=== PATIENT | female | born 1940 | race Caucasian/White ===

== ENCOUNTER 2019-09-21 09:19 | Outpatient (CLI) | payer MEDICARE, OTHER, SELFPAY ==
--- NOTE | 2019-09-21 | XR_ITS ---
WS: [id number] CHEST 2 VIEWS HISTORY: RIB PAIN ON LEFT SIDE COMPARISON: 04/09/2017 Lungs: Marked pulmonary hyperexpansion with chronic emphysema. Biapical pleural thickening and scarri ng. Flattening of the diaphragms. No pneumonia. Cardiac size: Normal. Mediastinum/Aorta: Mild atherosclerosis aorta. Bones: Severe osteopenia with increase in thoracic kyphosis. XR/XR chest 2V* [id number] IMPRESSION: Chronic emphysema. No pneumonia.
--- NOTE | 2019-09-21 | XR_ITS ---
WS: [id number] LUMBAR SPINE: 3 VIEWS TECHNIQUE: AP, lateral and L5-S1 spot. HISTORY: ACUTE LUMBAR BACK PAIN COMPARISON: 04/08/2015 Severe degenerative rotoscoliosis of the lumbar spine. S-shaped curvature the lumbar spine with asymm etric disc space narrowing and endplate osteophytes. 5 mm retrolisthesis of L2 and L3 and anterolisth esis of L4. Similar findings as compared to 04/08/2015. No acute fracture. Extensive atherosclerosis within the abdominal aorta. Calcification overlying the RIGHT kidney. SI joints are symmetric bilaterally. No soft tissue abnormalities. XR/XR lumbar spine 2-3V* [id number] IMPRESSION: Severe rotoscoliosis lumbar spine with asymmetric disc space narrowing. No acut e fracture identified.
== END 2019-09-21 09:20 | disposition home or self-care (01) ==
PROVIDERS: Family Provider Internal Medicine; PCP Family Medicine; Visit Provider Internal Medicine
DX: J43.9 Emphysema, unspecified (principal); R07.81 Pleurodynia; M54.5 Low back pain

== ENCOUNTER 2020-04-11 13:59 | Outpatient (CLI) | payer MEDICARE, OTHER, SELFPAY ==
--- NOTE | 2020-04-11 14:15 | USCV_ITS ---
Sander Bello Age: 79 Gender: F : 1940 Exam Date: 04/11/2020 14:35 Ordering Phys: Nicolas Ramirez MD Technologist: Shagufta Frye Exam Location: [facility] [place] Indication: EXERTIONAL SORTNESS OF BREATH BP: 130 / 70 HR: 64 Rhythm: Sinus Technical Quality: Adequate MEASUREMENTS (Male / Female) Normal Values 2D ECHO LV Diastolic Diameter PLAX 4.0 cm 4.2 - 5.9 / 3.9 - 5.3 cm LV Systolic Diameter PLAX 2.3 cm LV Chamber Size 4.0 cm IVS Diastolic Thickness 1.3 cm 0.6 - 1.0 / 0.6 - 0.9 cm IVS Systolic Thickness 1.3 cm LVPW Diastolic Thickness 1.1 cm 0.6 - 1.0 / 0.6 - 0.9 cm LVPW Systolic Thickness 1.7 cm RV Chamber Size 2.9 cm LVOT Diameter 2.0 cm LV Ejection Fraction 2D Teich 73.6 % LV Ejection Fraction MOD 2C 68.2 % LV Ejection Fraction 2C AL 69.3 % LA Diameter 3.1 cm LA Width 3.2 cm LA Height 3.7 cm RA Width 3.2 cm RA Height 3.2 cm Aorta at Sinotubular Diameter 2.3 cm M-MODE LV Diastolic Diameter MM 4.4 cm 4.2 - 5.9 / 3.9 - 5.3 cm LV Systolic Diameter MM 2.6 cm LV Ejection Fraction MM Teich 71.5 % IVS Diastolic Thickness MM 1.1 cm 0.6 - 1.0 / 0.6 - 0.9 cm IVS Systolic Thickness MM 1.4 cm LVPW Diastolic Thickness MM 1.1 cm 0.6 - 1.0 / 0.6 - 0.9 cm LVPW Systolic Thickness MM 1.6 cm RV Diastolic Diameter MM 1.4 cm Aortic Annulus Diameter 2.8 cm LA Ao Ratio MM 1.1 MV E Point Septal Separation 0.5 cm DOPPLER AV Peak Velocity 165.0 cm/s LVOT Peak Velocity 101.0 cm/s AV Area Cont Eq vti 2.2 cm squared AV Area Cont Eq pk 2.0 cm squared MV Area PHT 2.3 cm squared Mitral E to A Ratio 1.0 MV E' Velocity 8.0 cm/s Mitral E to MV E' Ratio 13.8 Mitral E to LV E' Lateral Ratio 12.7 Mitral E to LV E' Septal Ratio 15.4 TR Peak Velocity 179.8 cm/s TR Peak Gradient 12.9 mmHg TR Mean Velocity 102.7 cm/s TR Mean Gradient 4.9 mmHg TR Velocity Time Integral 36.4 cm TV Peak E Velocity 51.0 cm/s Right Atrial Pressure 3.0 mmHg Pulmonary Artery Systolic Pressu 15.9 mmHg PV Peak Velocity 70.0 cm/s RV Acceleration Time 0.1 s RV Ejection Time 0.3 s RV AcT/ET 0.5 FINDINGS Left Ventricle Normal left ventricular size is slightly diminished ejection fraction of 50 to 55%. Mild diffuse hypokinesia of the left ventricle Right Ventricle Normal right ventricular size and systolic function. Right Atrium Normal right atrial size. Left Atrium Normal left atrial size. Mitral Valve Thickened mitral valve. Mild mitral annular calcification. Trace mitral valve regurgitation. Aortic Valve Thickened aortic valve. Tricuspid Valve No gross abnormalities noted Pulmonic Valve Mild pulmonary valve regurgitation. Pericardium No pericardial effusion. Aorta Normal aortic annulus size. CONCLUSIONS Normal left ventricular size is slightly diminished ejection fraction of 50 to 55%. Mild diffuse hypokinesia of the left ventricle Thickened mitral valve. Mild mitral annular calcification. Trace mitral valve regurgitation. Thickened aortic valve. Mild pulmonary valve regurgitation. There is no pericardial effusion. There are no intracardiac masses. No previous study is available for comparison. Dr Jamie Ledesma MD [facility] (Electronically Signed) Final Date: 11 April 2020 19:38 S
== END 2020-04-11 14:00 | disposition home or self-care (01) ==
LOC: RAD 14:05
PROVIDERS: PCP Internal Medicine; Visit Provider Internal Medicine Pulmonary Disease
DX: R06.02 Shortness of breath (principal); I08.0 Rheumatic disorders of both mitral and aortic valves
CPT/HCPCS: 93306

== ENCOUNTER → 2020-04-15 11:47 | Outpatient (BNVA) | payer MEDICARE, OTHER, SELFPAY | PROVIDERS: PCP Internal Medicine; Visit Provider Internal Medicine | DX: Z12.2 Encounter for screening for malignant neoplasm of respiratory organs (principal) | CPT/HCPCS: 87635 ==

== ENCOUNTER → 2020-05-19 13:16 | Outpatient (BNVA) | payer MEDICARE, OTHER, SELFPAY | PROVIDERS: PCP Internal Medicine; Visit Provider Nurse Practitioner Family | DX: Z11.59 Encounter for screening for other viral diseases (principal) | CPT/HCPCS: 87635 ==

== ENCOUNTER 2020-05-23 13:10 | Outpatient (CLI) | payer MEDICARE, OTHER, SELFPAY ==
--- NOTE | 2020-05-23 13:30 | CT_ITS ---
WS: [id number] CT CHEST TECHNIQUE: Noncontrast CT of the chest with coronal and sagittal reformatted images. CLINICAL INFORMATION: Lung cancer screening COMPARISON: None. DLP: 356.[address] scans at [facility] use at least one of these dose optimization techniques: automat ed exposure control; mA and/or kV adjustment per patient size (includes targeted exams where dose is matched to clinical indication); or iterative reconstruction. FINDINGS: Moderate chronic emphysematous changes. Fibrosis in the lung apices. 4 mm noncalcified pulmonary nodu le right middle lobe. Additional tiny 2.3 mm noncalcified nodule right upper lobe. Fibrotic appearing noncalcified nodule left lower lobe measuring 4 mm. No mediastinal or hilar lymphadenopathy. Vascula r calcification including coronary. Aortic arch calcification. Slightly aneurysmal aortic arch measur ing 3.2 x 3.6 cm AP by transverse. Adrenal glands are normal. CT/CT chest wo con [id number] IMPRESSION: 1. A few subcentimeter noncalcified pulmonary nodules largest in the right mid dle lobe measuring 4 mm. Recommend 12 month follow-up. 2. Moderate chronic emphysematous changes. 3. No mediastinal or hilar lymphadenopathy. 4. Slightly aneurysmal aortic arch measuring 3.2 x 3.6 cm AP by transverse.
[2020-05-23 13:45] VITALS: O2SAT 97; O2SAT 99
--- NOTE | 2020-05-23 13:46 | PFTS_ITS ---
Date of Study:05/23/20 Date of Dictation: MECHANICS: Forced vital capacity (FVC) is normal. Forced expiratory volume in one second (FEV1) is reduced. FEV1/FVC is reduced. FLOW VOLUME LOOP: Reduced flow at all lung volumes with significant scooping. LUNG VOLUMES: Total lung capacity (TLC) is normal. Residual volume (RV) is increased. DIFFUSING CAPACITY FOR CARBON MONOXIDE: Moderately reduced. INTERPRETATION: The pulmonary function tests are consistent with moderate obstruction. There is no significant postbronchodilator response. Lung volumes are consistent with air trapping. Gas exchange (DLCO) is moderately reduced. MTDD
== END 2020-05-23 13:11 | disposition home or self-care (01) ==
LOC: RAD 13:11
PROVIDERS: PCP Internal Medicine; Visit Provider Internal Medicine Pulmonary Disease
DX: Z12.2 Encounter for screening for malignant neoplasm of respiratory organs (principal); F17.200 Nicotine dependence, unspecified, uncomplicated; J44.9 Chronic obstructive pulmonary disease, unspecified; R91.8 Other nonspecific abnormal finding of lung field
CPT/HCPCS: 71250; 94060; 94726; 94729; 94760; J7611

== ENCOUNTER 2020-10-27 09:51 | Outpatient (RCR) | payer MEDICARE, OTHER, SELFPAY | END 2020-10-30 23:59 | disposition home or self-care (01) | LOC: PULRHB 09:51 | PROVIDERS: PCP Internal Medicine; Visit Provider Internal Medicine Pulmonary Disease | DX: J44.9 Chronic obstructive pulmonary disease, unspecified (principal) | CPT/HCPCS: 94618 ==

== ENCOUNTER 2020-10-31 06:00 | Outpatient (RCR) | payer MEDICARE, OTHER, SELFPAY | END 2020-11-30 23:59 | disposition home or self-care (01) | LOC: PULRHB 06:00 | PROVIDERS: PCP Internal Medicine; Visit Provider Internal Medicine Pulmonary Disease | DX: J44.9 Chronic obstructive pulmonary disease, unspecified (principal) | CPT/HCPCS: G0424 ==

== ENCOUNTER 2020-12-01 06:00 | Outpatient (RCR) | payer MEDICARE, OTHER, SELFPAY | END 2020-12-30 23:59 | disposition home or self-care (01) | LOC: PULRHB 06:00 | PROVIDERS: PCP Internal Medicine; Visit Provider Internal Medicine Pulmonary Disease | DX: J44.9 Chronic obstructive pulmonary disease, unspecified (principal) | CPT/HCPCS: G0424 ==

== ENCOUNTER 2020-12-31 06:00 | Outpatient (RCR) | payer MEDICARE, OTHER, SELFPAY | END 2021-01-30 23:59 | disposition home or self-care (01) | LOC: PULRHB 06:00 | PROVIDERS: PCP Internal Medicine; Visit Provider Internal Medicine Pulmonary Disease | DX: J44.9 Chronic obstructive pulmonary disease, unspecified (principal) | CPT/HCPCS: G0424 ==

== ENCOUNTER 2021-06-07 08:33 | Outpatient (CLI) | payer MEDICARE, OTHER, SELFPAY ==
--- NOTE | 2021-06-07 08:00 | CT_ITS ---
WS: [id number] CT CHEST WITHOUT INTRAVENOUS CONTRAST HISTORY: pulmonary nodule TECHNIQUE: Contiguous 5 mm axial imaging performed on the thorax. Coronal and sagittal reformats are submitted. All CT scans at [facility] use at least one of these dose optimization techniques: automated exposure control; mA and/or kV adjustment per patient size (includes targeted exams where dose is matched to clinical indication); or iterative reconstruction. CONTRAST: None DLP: 365.13 mGy.cm COMPARISON: 05/23/2020 Lungs and central airway: Marked pulmonary hyperexpansion from emphysema. Biapical pleural thickening is stable. 0.2 nodule in the periphery of the RIGHT upper lobe as seen on the prior study is stable. There is a new slightly lobulated soft tissue mass with mild adjacent nodularity in the RIGHT middle lobe. This nodule measures 2.1 x 1.4 cm and is closely associated with the bronchus. Additional 0.6 cm nodule is noncalcified in the anterior RIGHT middle lobe, slightly increased in size. Pleura: Normal. No pleural effusion. Heart and pericardium: Normal size heart. No pericardial effusion. Moderate coronary artery atheroscl erosis. Mediastinum and luiz: No adenopathy is identified. Smaller nodes at the RIGHT hilum would be obscured without IV contrast. Vessels: Ectatic heavily calcified thoracic aorta. There is a very slight dilatation of the aorta thr ough the arch with a maximum diameter of 3.7 cm which is similar to the prior study. Overall the aort a is ectatic. Chest wall and lower neck: No soft tissue masses. Upper abdomen: Cholelithiasis without acute cholecystitis. Mild thickening of the RIGHT adrenal gland with low Hounsfield units is probably an adenoma. No increase in size. Mild heterogeneity within the liver. Osseous structures: Mild rotoscoliosis of the thoracolumbar spine. CT/CT chest wo con [id number] IMPRESSION: 1. New RIGHT middle lobe nodule measures 2.1 x 1.4 cm. Suspicious for carcinom a. This is closely associated with a proximal bronchus therefore may be accessi ble via bronchoscopy. Recommend PET/CT imaging also. 2. Very slight increase in size of the 0.6 cm nodule in the anterior RIGHT mid dle lobe. No change in size of the 0.2 cm nodule RIGHT upper lobe. 3. Marked emphysema. 4. 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
--- NOTE | 2021-06-07 08:45 | USCV_ITS ---
Sander Bello Age: 80 Gender: F : 1940 Exam Date: 06/07/2021 08:52 Ordering Phys: Nicolas Ramirez MD Technologist: Joan Gómez Exam Location: [facility] [place] Indication: DYSPNEA BP: 130 / 84 HR: 89 Rhythm: Sinus Technical Quality: Adequate MEASUREMENTS (Male / Female) Normal Values 2D ECHO LV Diastolic Diameter PLAX 3.6 cm 4.2 - 5.9 / 3.9 - 5.3 cm LV Systolic Diameter PLAX 1.5 cm IVS Diastolic Thickness 1.1 cm 0.6 - 1.0 / 0.6 - 0.9 cm IVS Systolic Thickness 1.6 cm LVPW Diastolic Thickness 1.1 cm 0.6 - 1.0 / 0.6 - 0.9 cm LVPW Systolic Thickness 2.1 cm LVOT Diameter 2.0 cm LV Ejection Fraction 2D Teich 89.9 % LV Ejection Fraction MOD 2C 56.5 % LV Ejection Fraction 2C AL 56.8 % LA Diameter 3.0 cm LA Width 3.3 cm LA Height 4.7 cm RA Width 3.2 cm RA Height 4.7 cm Aorta at Sinotubular Diameter 2.6 cm DOPPLER AV Peak Velocity 162.0 cm/s LVOT Peak Velocity 117.0 cm/s AV Area Cont Eq vti 2.5 cm squared AV Area Cont Eq pk 2.4 cm squared MV Peak Velocity 143.0 cm/s MV Area PHT 2.9 cm squared Mitral E to A Ratio 1.2 MV E' Velocity 63.0 cm/s Mitral E to MV E' Ratio 13.1 Mitral E to LV E' Lateral Ratio 16.5 Mitral E to LV E' Septal Ratio 10.8 TR Peak Velocity 191.7 cm/s TR Peak Gradient 14.7 mmHg Right Atrial Pressure 3.0 mmHg Pulmonary Artery Systolic Pressu 17.7 mmHg PV Peak Velocity 99.0 cm/s RV Acceleration Time 0.1 s RV Ejection Time 0.4 s RV AcT/ET 0.2 FINDINGS Left Ventricle Normal left ventricular size and wall thickness. Low normal left ventricular systolic function. Left ventricular ejection fraction is estimated at 50-55 %. No regional wall motion abnormality. Normal diastolic function. Right Ventricle Normal right ventricular size and systolic function. Right ventricular systolic pressure 17.7 mmHg. Right Atrium Normal right atrial size. Right atrial pressure estimated at 3 mm Hg. Left Atrium Mildly increased left atrial size. Mitral Valve Mild mitral annular calcification. Mildly thickened mitral valve. No mitral valve stenosis. Trace to mild mitral valve regurgitation. Aortic Valve Thickened trileaflet aortic valve. No aortic valve stenosis. No aortic valve regurgitation. Tricuspid Valve Structurally normal tricuspid valve. No tricuspid valve stenosis. Trace to mild tricuspid valve regurgitation. Pulmonic Valve Structurally normal pulmonic valve. No pulmonary valve stenosis. Mild pulmonary valve regurgitation. Pericardium No pericardial effusion. Aorta Normal sized aortic root and proximal aortic root. Normal sized inferior vena cava with normal respiratory variation. CONCLUSIONS 1. Normal left ventricular size and wall thickness. Low normal left ventricular systolic function. Left ventricular ejection fraction is estimated at 50-55 %. No regional wall motion abnormality. Normal diastolic function. 2. Normal right ventricular size and systolic function. 3. Mildly increased left atrial size. 4. Normal pulmonary artery pressure. 5. Mild pulmonary valve regurgitation. 6. No significant change when compared to previous study dated 04/11/2020. Sheela Melgar MD (Electronically Signed) Final Date: 07 June 2021 19:38 S
== END 2021-06-07 08:34 | disposition home or self-care (01) ==
LOC: US 08:34
PROVIDERS: PCP Internal Medicine; Visit Provider Internal Medicine Pulmonary Disease
DX: R06.00 Dyspnea, unspecified (principal); R91.1 Solitary pulmonary nodule; F17.200 Nicotine dependence, unspecified, uncomplicated; I71.4 Abdominal aortic aneurysm, without rupture; J43.9 Emphysema, unspecified
CPT/HCPCS: 71250; 93306

== ENCOUNTER → 2021-06-08 09:14 | Outpatient (BNVA) | payer MEDICARE, OTHER, SELFPAY | PROVIDERS: PCP Internal Medicine; Visit Provider Internal Medicine Pulmonary Disease | DX: Z01.818 Encounter for other preprocedural examination (principal); R06.00 Dyspnea, unspecified; Z20.822 Contact with and (suspected) exposure to COVID-19 | CPT/HCPCS: 87635 ==

== ENCOUNTER 2021-06-14 07:44 | Outpatient (CLI) | payer MEDICARE, OTHER, SELFPAY ==
--- NOTE | 2021-06-14 08:41 | PFTS_ITS ---
Date of Study:06/14/21 Date of Dictation: 06/14/2021 MECHANICS: Postbronchodilator forced vital capacity (FVC) is . Postbronchodilator forced expiratory volume in one second (FEV1) is severely reduced 50%. FEV1/FVC is reduced. There is significant response to bronchodilators. FLOW VOLUME LOOP: Severe scooping of expiratory limb suggestive of severe airway obstruction . LUNG VOLUMES: Total lung capacity (TLC) is normal . Residual volume (RV) is increased to suggestive of moderate air trapping. DIFFUSING CAPACITY FOR CARBON MONOXIDE: Moderately reduced 41% . INTERPRETATION: The pulmonary function tests are consistent with severe obstructive ventilatory disease with moderate air trapping. There is moderate gas transfer defect. There is significant bronchodilator response. Clinical correlation recommended. MTDD
== END 2021-06-14 07:45 | disposition home or self-care (01) ==
LOC: RT 07:45
PROVIDERS: PCP Internal Medicine; Visit Provider Internal Medicine Pulmonary Disease
DX: R06.00 Dyspnea, unspecified (principal); J44.9 Chronic obstructive pulmonary disease, unspecified; Z72.0 Tobacco use
CPT/HCPCS: 94060; 94726; 94729; J7611

== ENCOUNTER → 2022-01-30 13:33 | Outpatient (BNVA) | payer MEDICARE, OTHER, SELFPAY | PROVIDERS: PCP Family Medicine; Visit Provider Internal Medicine Pulmonary Disease | DX: R06.02 Shortness of breath (principal); F17.210 Nicotine dependence, cigarettes, uncomplicated; J43.2 Centrilobular emphysema; Z71.6 Tobacco abuse counseling; J30.9 Allergic rhinitis, unspecified; I10 Essential (primary) hypertension | CPT/HCPCS: 99214 ==